=== PATIENT | female | born 1945 | race Two or more races ===

== ENCOUNTER 2024-06-27 06:26 | Day surgery (SDC) | payer OTHER ==
[2024-06-26 13:15] VITALS: BP 43/78
[~2024-06-27] VITALS: Ht 154.9 cm; Wt 49.9 kg
[~2024-06-27 06:26] MED LIST: ANASTROZOLE1 MG PO; ATORVASTATIN CA10 MG PO; COZAAR100 MG PO; GLIMEPIRIDE2 MG; GLUMETZA1000 MG PO; LEVO-T25 MCG PO; NEURONTIN300 MG PO; NORVASC10 MG PO; TENORMIN50 M1 PO
[2024-06-27] MEDS ORDERED: CIPROFLOXACIN IN 5 % DEXTROSE 400 MG/200 ML PIGGYBAG IV ONE (13:00)
[2024-06-27] MEDS ORDERED: CHLORHEXIDINE GLUCONATE 120 ML BOTTLE TOP ONE (13:00)
[2024-06-27] MEDS ORDERED: MORPHINE SULFATE 4 MG/ML VIAL IV ONE ×2 (15:35→16:05)
== END 2024-06-27 20:50 | disposition home or self-care (01) ==
LOC: CIR.AMB 06:26
PROVIDERS: ATTEND Surgery
DX: C50.811 Malignant neoplasm of overlapping sites of right female breast (principal); R59.0 Localized enlarged lymph nodes; I10 Essential (primary) hypertension; E78.5 Hyperlipidemia, unspecified; M19.90 Unspecified osteoarthritis, unspecified site; K21.9 Gastro-esophageal reflux disease without esophagitis; G62.9 Polyneuropathy, unspecified; Z88.0 Allergy status to penicillin